=== PATIENT | female | born 1985 | race Caucasian/White ===

== ENCOUNTER 2016-05-18 07:48 | Emergency (ER) | payer OTHER ==
[~2016-05-18] VITALS: Ht 170.2 cm; Wt 95.3 kg
[2016-05-18 07:50] VITALS: BP 148/89; PULSE 91; RESP 22; TEMP 97.3; O2SAT 99
--- NOTE | 2016-05-18 07:50 | NUR ---
Pt BIB W/C per significant other and actively seizing. Pt placed in ER bed 1, on nuclear monitoring technician, Dr. Hansen at bedside. Report given to MARILYN Weir. Addendum: 05/18/16 at 0808 by HAIR Pt experiencing a tonic/clonic seizure. Pt has hx of an inoperable brain tumor since 2013.
--- NOTE | 2016-05-18 07:55 | NUR ---
Pt becomes lucid, no postictal phase. Pt moaning out c/o headache.
[2016-05-18] MEDS ORDERED: PROCHLORPERAZINE EDISYLATE 10 MG/2 ML VIAL IVP ONE ×2 (08:00→08:15)
[2016-05-18] MEDS ORDERED: LORazepam 2 MG/ML VIAL (FOR ER USE) IVP ONE (08:00)
[2016-05-18] MEDS ORDERED: NACL 0.9% 1,000 ML IV ONE (08:00)
[2016-05-18] MEDS ORDERED: ONDANSETRON HCL 4 MG/2 ML VIAL IVP ONE (08:00)
--- NOTE | 2016-05-18 08:00 | NUR ---
#20 gauge angiocath placed to LAC per MARILYN Weir. Use of asceptic technique. Opsite placed over site. Blood return noted. Blood for lab drawn from site. Flushed with 10 cc of normal saline. No evidence of infiltration noted. Patient tolerated well.
[2016-05-18] MEDS ORDERED: LORazepam 2 MG/ML VIAL (FOR ER USE) ONE (08:04)
[2016-05-18] MEDS ORDERED: ONDANSETRON HCL 4 MG/2 ML VIAL ONE (08:08)
[2016-05-18] MEDS ORDERED: DIPHENHYDRAMINE INJ 50 MG/ML VIAL IVP ONE (08:15)
[2016-05-18 08:28] LABS: BASOPHILS % (AUTO) 0.3 % (0.0-2.0); EOSINOPHILS % (AUTO) 20.5 % (0.0-4.0); HEMATOCRIT 40.6 % (36-48); HEMOGLOBIN 13.7 g/dL (12.0-16.0); LYMPHOCYTES % (AUTO) 20.8 % (20.5-51.5); MEAN CORPUSCULAR HEMOGLOBIN 27 pg (27-31); MEAN CORPUSCULAR HGB CONC 34 % (32-36); MEAN CORPUSCULAR VOLUME 81 fL (79.0-98.0); MONOCYTES # (AUTO) 0.5 K/uL (0.0-1.0); MONOCYTES % (AUTO) 5.6 % (1.7-9.3); NEUTROPHILS # (AUTO) 5.1 K/uL (1.8-7.7); NEUTROPHILS % (AUTO) 52.8 % (40.0-70.0); PLATELET COUNT (AUTO) 290 K/uL (130-430); RED CELL DISTRIBUTION WIDTH 15.4 % (9.0-15.0); WHITE BLOOD COUNT (AUTO) 9.6 K/uL (4.8-10.8)
[2016-05-18 08:31] LABS: CREATININE 0.82 mg/dL (0.55-1.30); POTASSIUM 3.7 mmol/L (3.5-5.1)
[2016-05-18 08:46] LABS: ALBUMIN 3.8 g/dL (3.4-4.8); TOTAL BILIRUBIN 0.4 mg/dL (0.0-1.0); TOTAL PROTEIN, SERUM 7.5 g/dL (6.4-8.3)
--- NOTE | 2016-05-18 09:00 | NUR ---
Pt up and out of bed ambulating well, steady gait noted, returned to assigned bed without complications.
[2016-05-18] MEDS ORDERED: PROCHLORPERAZINE EDISYLATE 10 MG/2 ML VIAL ONE (09:15)
--- NOTE | 2016-05-18 09:20 | NUR ---
Pt taken to CT scan via gurney via gurney, escorted by phlebotomy technologist.
--- NOTE | 2016-05-18 09:33 | NUR ---
Patient returned from CT scan, condition stable.
[2016-05-18 09:34] LABS: BARBITURATE, URINE NEGATIVE (NEG <=200); BENZODIAZEPINE, URINE POSITIVE (NEG <=150); CANNABINOID, URINE NEGATIVE (NEG <=50); COCAINE, URINE NEGATIVE (NEG <=150); METHAMPHETAMINES SCREEN,URINE POSITIVE (NEG <=500); OPIATE, URINE POSITIVE (NEG <=100); PHENCYCLIDINE SCREEN,URINE NEGATIVE (NEG <=25); UR TRICYCLIC ANTIDEPRESSANTS NEGATIVE (NEG <=300); URINE AMPHETAMINE NEGATIVE (NEG <=500); URINE METHADONE NEGATIVE (NEG <=200); URINE OXYCODONE SCREEN NEGATIVE (NEG <=100); URINE PROPOXYPHENE SCREEN NEGATIVE (NEG <=300)
[2016-05-18 10:40] VITALS: BP 118/76; PULSE 70; RESP 16; TEMP 98; O2SAT 98
--- NOTE | 2016-05-18 10:42 | NUR ---
Patient given written and verbal discharge instructions and verbalizes understanding. ER MD discussed with patient the results and treatment provided. Given copies of tests performed in ER. Patient in stable condition. ID arm band removed. IV catheter removed intact and dressing applied, no active bleeding. Patient educated on pain management and to follow up with PMD. Pain Scale . Opportunity for questions provided and answered.
== END 2016-05-18 10:40 | disposition home or self-care (01) ==
LOC: SED 07:48
DX: F44.5 Conversion disorder with seizures or convulsions (principal); F15.20 Other stimulant dependence, uncomplicated; R03.0 Elevated blood-pressure reading, without diagnosis of hypertension; Z85.841 Personal history of malignant neoplasm of brain
CPT/HCPCS: 36415; 70450; 80053; 80307; 81025; 84702; 85025; 93005; 96361; 96374; 96375; 99285; J0780; J2060; J2405; J7030